=== PATIENT | female | born 1985 | race Hispanic/Latino ===

== ENCOUNTER 2020-01-10 02:55 | Inpatient (IN) | payer BC ==
[~2020-01-10] VITALS: Ht 165.1 cm; Wt 73.9 kg
[2020-01-10] MEDS ORDERED: LACTATED RINGERS 1000ML 1,000 ML IV PRN (04:17)
[2020-01-10] MEDS ORDERED: CLINDAMYCIN 600 MG/D5% WATER 50 ML IV SCH (04:30)
[2020-01-10] MEDS ORDERED: LACTATED RINGERS 500 ML 500 ML IV PRN (04:30)
[2020-01-10] MEDS ORDERED: ROPIVACAINE 0.2% 100ML VIAL 100 ML EP SCH (04:30)
[2020-01-10] MEDS ORDERED: NALOXONE HCL 0.4 MG/1 ML ML IV PRN (04:30)
[2020-01-10] MEDS ORDERED: EPHEDRINE SULFATE 50 MG/ML AMPULE IVP PRN (04:30)
[2020-01-10 04:41] LABS: HEMATOCRIT 34.8 % (36-48); MEAN CORPUSCULAR HEMOGLOBIN 24.5 pg (27.0-33.0); MEAN CORPUSCULAR HGB CONC 31.6 g/dL (32.0-36.0); MEAN CORPUSCULAR VOLUME 77.5 fL (79-99); PLATELET COUNT (AUTO) 303 K/uL (130-400); RED BLOOD CELL COUNT(AUTO) 4.49 MIL/uL (4.00-5.50); WHITE BLOOD COUNT (AUTO) 7.7 K/uL (4.8-10.8)
[2020-01-10] MEDS ORDERED: OXYTOCIN-LR 20 UNITS/1000 ML 1,000 ML IV SCH ×2 (07:15→09:15)
[2020-01-10] MEDS ORDERED: LIDOCAINE HCL 1% 20 ML VIAL INJ PRN (07:30)
[2020-01-10] MEDS ORDERED: DIPH,PERTUSS(ACELL),TET VAC/PF 0.5 ML VIAL IM PRN (09:15)
[2020-01-10] MEDS ORDERED: BENZOCAINE/LANOLIN/ALOE VERA 60 ML AEROSOL TP PRN (09:15)
[2020-01-10] MEDS ORDERED: LANOLIN 30GM OINTMENT TP PRN (09:15)
[2020-01-10] MEDS ORDERED: WITCH HAZEL 1 PAD TP PRN (09:15)
[2020-01-10] MEDS ORDERED: ACETAMINOPHEN-CODEINE 300/30MG TAB PO PRN (09:15)
[2020-01-10 20:19] VITALS: BP 101/59
--- NOTE | 2020-01-10 20:45 | NUR ---
pt. is her baby on her left breast. Good latch noted. Instructed the pt. not to forget to burp the baby after each feeding. pt understood and she did it.
[2020-01-10] MEDS: DOCUSATE SODIUM 100 MG CAP PO SCH (21:01)
--- NOTE | 2020-01-10 21:01 | NUR ---
Colace 100 mg. one capsule taken PO. Pt. tolerated the intake of the pill well.
[2020-01-10] MEDS: IBUPROFEN 600 MG TABLET PO PRN (21:10)
--- NOTE | 2020-01-10 21:10 | NUR ---
Motrin 600 mg. one tablet given PO for pain scale of 3 out of 10. Pt. tolerated the intake of the pill well.
--- NOTE | 2020-01-10 22:10 | NUR ---
pt. verbalized that the pain went away. She only felt the cramping when is the baby is .
[2020-01-11] VITALS: BP 99/67
--- NOTE | 2020-01-11 00:13 | NUR ---
pt. verbalized that the cool gel pack and the lanolin cream helped relieved the soreness on her both breast.
--- NOTE | 2020-01-11 03:30 | NUR ---
pt. is at this time. Pt. requesting pain medicine for her cramping with a pain scale of 4 out of 10. Motrin 600 mg. given one tablet PO. Pt. tolerated the intake of the pill well.
[2020-01-11] MEDS: IBUPROFEN 600 MG TABLET PO PRN (03:32)
[2020-01-11 04:02] VITALS: BP 105/40
--- NOTE | 2020-01-11 06:00 | NUR ---
pt. denies pain. perineum not swollen. fundus firm below the umbilicus. scant rubra noted.
--- NOTE | 2020-01-11 06:20 | NUR ---
blood drawn for CBC as ordered. Pt. tolerated the procedure well.
[2020-01-11 08:12] VITALS: BP 93/49
[2020-01-11] MEDS: DOCUSATE SODIUM 100 MG CAP PO SCH (09:00)
[2020-01-11 12:03] VITALS: BP 115/72
--- NOTE | 2020-01-11 13:10 | NUR ---
DISCHARGE DISCHARGED THROUGH ER EXIT VIA WHEELCHAIR WITH BABY IN ARMS, DEPARTED PER PERSONAL VEHICLE WITH SPOUSE ALONGSIDE.
[2020-01-13 08:13] LABS: HEPATITIS Bs ANTIGEN SCREEN P Negative (Negative)
== END 2020-01-11 13:36 | disposition home or self-care (01) | DRG 807 ==
LOC: EDH 02:55 → LDH 02:56 → OBSVTOIN 02:56 → LDH 03:10 → WSH 15:06
PROC: 10E0XZZ Delivery of Products of Conception, External Approach (ICD-10-PCS; principal; 2020-01-10)
PROC: 3E0R3BZ Introduction of Anesthetic Agent into Spinal Canal, Percutaneous Approach (ICD-10-PCS; 2020-01-10)
PROC: 00HU33Z Insertion of Infusion Device into Spinal Canal, Percutaneous Approach (ICD-10-PCS; 2020-01-10)
PROC: 3E0234Z Introduction of Serum, Toxoid and Vaccine into Muscle, Percutaneous Approach (ICD-10-PCS; 2020-01-10)
DX: O77.0 Labor and delivery complicated by meconium in amniotic fluid (principal); Z37.0 Single live birth; Z23 Encounter for immunization; Z3A.40 40 weeks gestation of pregnancy
CPT/HCPCS: 36415; 85027; 86592; 86701; 86850; 86900; 86901; 87340; 87390; A4314; A4606; G0378; J2590; J2795; J3490; J7120

== ENCOUNTER 2020-03-30 08:51 | Day surgery (SDC) | payer BC ==
[2020-03-29 10:15] VITALS: BP 107/71; PULSE 68; RESP 18; TEMP 97.2
[~2020-03-30] VITALS: Ht 163.8 cm; Wt 64.7 kg
[2020-03-30] VITALS (17 sets, daily range): BP systolic 100–109; BP diastolic 54–77; PULSE 64–89; RESP 12–20; TEMP 97.3–98
[~2020-03-30 08:51] MED LIST: CLINDAMYCIN 600 MG/D5% WATER 50 ML IV SCH
[2020-03-30] MEDS ORDERED: SUCCINYLCHOLINE CHLORIDE 20 MG/ML 10 ML VIAL ONE (09:51)
[2020-03-30] MEDS ORDERED: FENTANYL CITRATE PF 50 MCG/1 ML 2ML VIAL ONE (09:52)
[2020-03-30] MEDS ORDERED: DEXAMETHASONE SOD PHOSPHATE 4 MG/ML 1ML VIAL ONE (09:52)
[2020-03-30] MEDS ORDERED: MIDAZOLAM HCL 1 MG/ML 2ML VIAL ONE (09:52)
[2020-03-30] MEDS: LACTATED RINGERS 1000ML 1,000 ML IV SCH ×2 (09:52→11:00)
[2020-03-30] MEDS ORDERED: LIDOCAINE PF 2% 5ML ABBOJECT ONE (09:52)
[2020-03-30] MEDS ORDERED: PROPOFOL 10 MG/ML 20ML VIAL IV ONE (09:52)
[2020-03-30] MEDS ORDERED: ONDANSETRON HCL 4 MG/2 ML VIAL ONE (09:53)
[2020-03-30] MEDS: CALDOLOR 800MG+NS 250ML 250 ML IV SCH ×2 (09:55→10:25)
[2020-03-30] MEDS ORDERED: BUPIVACAINE/PF 0.5% 30ML VIAL ONE (09:59)
== END 2020-03-30 12:45 | disposition home or self-care (01) ==
LOC: DAH 08:51
DX: Z30.2 Encounter for sterilization (principal); Z11.59 Encounter for screening for other viral diseases; Z88.0 Allergy status to penicillin; Z98.890 Other specified postprocedural states; Z90.49 Acquired absence of other specified parts of digestive tract
CPT/HCPCS: 36415 ×3; 58670; 84703; 85025; 86850 ×2; 86900 ×2; 86901 ×2; A4215 ×2; A4221; A4222; A4223; A4351; A4663; A4930; A6260; C1769 ×2; G0168; J0330; J1100; J2001; J2250; J2405; J2704; J3010; J3490; J7030; J7040; J7120; U0003